=== PATIENT | female | born 1965 | race Caucasian/White ===

== ENCOUNTER 2016-08-25 06:52 | Observation (INO) | payer BC, OTHER ==
[~2016-08-25] VITALS: Ht 162.6 cm; Wt 88.0 kg
[2016-08-25] MEDS: NITROGLYCERIN 0.4 MG SL PER TAB CHARGE SL PRN ×2 (07:17→10:42)
--- NOTE | 2016-08-25 07:17 | EMERGENCY ROOM VISIT NOTE ---
History Report prepared by Lane: Ciara Corbin Under the Supervision of: Dr. Lorenzo Ennis M.D. First contact with patient: 07:03 Chief Complaint: CHEST PAIN Stated Complaint: CHEST PAIN,PAIN DOWN LFT ARM History of Present Illness The patient is a 51 year old female who presents to the Emergency Room with complaints of intermittent chest pain that began Thursday evening. She currently rates her discomfort as a 5/10 in severity. The patient states that Thursday she noticed the central chest pain and felt that it was indigestion. She states that her discomfort seemed to be alleviated with TUMS. The patient states that on Thursday she felt well, but notes that this morning she noticed the central chest pain again. She describes her discomfort as a pressure. The patient states that her left arm has been feeling strange as well. She notes a family history of heart disease. The patient denies any personal history of diabetes, heart disease, hypertension, lung disease, or kidney disease, but additionally notes that she does not regularly see her PCP. The patient denies any nausea, but notes a decrease in her appetite. Source of History: patient Onset: Thursday evening Position: chest (central) Symptom Intensity: 5/10 Quality: pressure Timing: intermittent Modifying Factors (Relieving): other (TUMS) Associated Symptoms: No nausea Review of Systems All systems have been listed, reviewed, and are negative other than those previously mentioned. Please see Additional Medical History Sheet. Past Medical & Surgical Surgical Problems: (1) Previous section Family History Cancer Gallbladder disease Heart disease Hypertension Social History Smoking Status: Never Smoker Smokeless Tobacco Use: No Alcohol Use: none Marital Status: Housing Status: lives with family Occupation Status: employed Current/Historical Medications No Active Prescriptions or Reported Meds Allergies Coded Allergies: No Known Allergies (Unverified , 05/18/14) Physical Exam Vital Signs Date Time Temp Pulse Resp B/P Pulse Ox O2 Delivery O2 Flow Rate FiO2 08/25/16 10:18 75 19 94 08/25/16 10:13 179/110 08/25/16 10:01 204/109 08/25/16 10:00 81 19 98 08/25/16 09:33 170/110 08/25/16 09:31 180/113 08/25/16 09:30 71 21 97 08/25/16 09:12 74 19 187/98 96 Room Air 08/25/16 09:11 187/98 08/25/16 07:24 80 08/25/16 07:22 81 194/105 08/25/16 07:19 96 Room Air 08/25/16 06:58 36.3 82 18 210/129 96 Room Air Physical Exam GENERAL: Patient awake, alert, oriented x 3. Patient follows commands. Patient appears to be in moderate distress. Patient does not appear toxic. Patient is adequately hydrated and well-nourished. SKIN: No erythema, pallor, cyanosis or rash HEENT: Normal head, pupils equal, reactive to light and accommodation. Neck: Without adenopathy, no neck vein distention. CHEST WALL: Tenderness to palpation over the left sternal border, approximately the 3rd intercostal space. LUNGS: Clear to auscultation. No wheezes, no rales, no rhonchi. HEART: No murmurs. No gallops. No rubs ABDOMEN: No masses, no rebound, no hepatomegaly or splenomegaly. EXTREMITIES: No signs of trauma. No pedal or pretibial edema. No calf or thigh tenderness. NEUROLOGIC: Cranial nerves II-XII within normal limits. No gross motor sensory function deficits. Medical Decision & Procedures ER Provider Diagnostic Interpretation: X ray results are stated below per my interpretation and the radiologist's interpretation. CHEST ONE VIEW PORTABLE CLINICAL HISTORY: Atypical chest pain COMPARISON STUDY: 05/18/2014 FINDINGS: The cardiac and mediastinal contours are normal. There is no evidence of focal pulmonary consolidation. There is no evidence of failure. No pleural effusions are visualized.[ IMPRESSION: No active disease in the chest. Electronically signed by: Gabriel Vargas M.D. 08/25/2016 7:24 AM Dictated Date/Time: 08/25/2016 7:21 AM Laboratory Results 08/25/16 07:10 08/25/16 07:10 Test 08/25/16 07:08 08/25/16 07:10 08/25/16 08:44 Prothrombin Time 10.3 SECONDS (9.0-12.0) Prothromb Time International Ratio 1.0 (0.9-1.1) Activated Partial Thromboplast Time 26.8 SECONDS (21.0-31.0) Partial Thromboplastin Ratio 1.0 Urine Color YELLOW Urine Appearance CLEAR (CLEAR) Urine pH 7.5 (4.5-7.5) Urine Specific [place] 1.011 (1.000-1.030) Urine Protein 1+ (NEG) Urine Glucose (UA) NEG (NEG) Urine Ketones NEG (NEG) Urine Occult Blood 1+ (NEG) Urine Nitrite NEG (NEG) Urine Bilirubin NEG (NEG) Urine Urobilinogen NEG (NEG) Urine Leukocyte Esterase NEG (NEG) Urine WBC (Auto) 1-5 /hpf (0-5) Urine RBC (Auto) 0-4 /hpf (0-4) Urine Hyaline Casts (Auto) 1-5 /lpf (0-5) Urine Epithelial Cells (Auto) 10-20 /lpf (0-5) Urine Bacteria (Auto) NEG (NEG) Urine Test NEG (NEG) Red Blood Count 5.20 M/uL (4.2-5.4) Mean Corpuscular Volume 90.8 fL (80-100) Mean Corpuscular Hemoglobin 31.3 pg (25-34) Mean Corpuscular Hemoglobin Concent 34.5 g/dl (32-36) RDW Standard Deviation 46.8 fL (36.4-46.3) RDW Coefficient of Variation 14.0 % (11.5-14.5) Mean Platelet Volume 10.2 fL (7.4-10.4) Anion Gap 5.0 mmol/L (3-11) Est Creatinine Clear Calc Drug Dose 87.1 ml/min Estimated GFR () 95.4 Estimated GFR (Non- 82.3 BUN/Creatinine Ratio 15.2 (10-20) Calcium Level 8.9 mg/dl (8.5-10.1) Total Bilirubin 0.9 mg/dl (0.2-1) Direct Bilirubin 0.2 mg/dl (0-0.2) Aspartate Amino Transf (AST/SGOT) 19 U/L (15-37) Alanine Aminotransferase (ALT/SGPT) 27 U/L (12-78) Alkaline Phosphatase 56 U/L (45-117) Total Protein 7.7 gm/dl (6.4-8.2) Albumin 4.2 gm/dl (3.4-5.0) Hepatitis C Antibody Screen NEG (NEG) Bedside Troponin I 0.020 ng/ml (0-0.045) Laboratory results as stated above per my review. Medications Administered Medications (Trade) Dose Ordered Sig/Dao Route Start Time Stop Time Status Last Admin Dose Admin Nitroglycerin (Nitrostat Tab) 0.4 mg PRN PRN SL 08/25/16 07:15 08/25/16 12:23 DC 08/25/16 10:42 0.4 MG Lisinopril (Zestril Tab) 10 mg NOW STAT PO 08/25/16 09:42 08/25/16 09:43 DC 08/25/16 10:17 10 MG ECG Indication: chest pain Rate (beats per minute): 93 Rhythm: normal sinus Findings: no acute ischemic change, no ectopy ED Course 704: Past medical records reviewed. The patient was evaluated in room B6. A complete history and physical examination was performed. 714: Ordered Nitroglycerin 0.4 mg SL. 926: I reevaluated the patient and she is resting comfortably. I discussed the exam findings with her and I discussed the treatment plan. She verbalized complete understanding and agreement. She will be evaluated for further treatment. 941: I discussed the patients case with MIGUEL A Paz. He is going to evaluate the patient for further treatment. Ordered Lisinopril 10 mg PO. Medical Decision I considered multiple diagnoses including myocardial infarction, chest wall pain , pericarditis, myocarditis, aortic emergencies, pulmonary embolism, congestive heart failure, GI causes, and other significant cardiopulmonary disorders. The patient does have some tenderness on palpation over the left sternal border. The patient felt almost immediate relief with nitroglycerin. Following that her pain remained low but she still says that she does not feel right. Patient also had some numbness on her left arm. Her blood pressure remains elevated. Multiple labs, EKG and imaging were obtained. Please see above. She has 2 negative troponins. In light of all the above I believe the patient requires further evaluation in the hospital. I remain concerned about the possible cardiac etiology and hypertension. I discussed care with the patient, her and the hospitalist. Consults Time Called: [phone] Consulting Physician: MIGUEL A Paz Returned Call: [phone] I discussed the patients case with MIGUEL A Paz. He is going to evaluate the patient for further treatment. Impression Primary Impression: Substernal precordial chest pain Additional Impression: Hypertension Scribe Attestation The scribe's documentation has been prepared under my direction and personally reviewed by me in its entirety. I confirm that the note above accurately reflects all work, treatment, procedures, and medical decision making performed by me. Departure Information Dispostion Being Evaluated By Hospitalist Prescriptions No Active Prescriptions or Reported Meds Referrals No Doctor, Assigned (PCP) Problem Qualifiers
[2016-08-25 07:23] LABS: HEMATOCRIT 47.2 % (37-47); MEAN CELL VOLUME 90.8 fL (80-100); MEAN CORPUSCULAR HEMOGLOBIN 31.3 pg (25-34); MEAN CORPUSCULAR HGB CONC 34.5 g/dl (32-36); MEAN PLATELET VOLUME 10.2 fL (7.4-10.4); PLATELET COUNT 183 K/uL (130-400); WHITE BLOOD COUNT 7.25 K/uL (4.8-10.8)
--- NOTE | 2016-08-25 07:27 | DIAGNOSTIC IMAGING REPORT ---
CHEST ONE VIEW PORTABLE CLINICAL HISTORY: Atypical chest pain COMPARISON STUDY: 05/18/2014 FINDINGS: The cardiac and mediastinal contours are normal. There is no evidence of focal pulmonary consolidation. There is no evidence of failure. No pleural effusions are visualized.[ IMPRESSION: No active disease in the chest. Electronically signed by: Gabriel Vargas M.D. 08/25/2016 7:24 AM Dictated Date/Time: 08/25/2016 7:21 AM
[2016-08-25 07:40] LABS: BUN/CREATININE RATIO 15.2 (10-20); CALCIUM 8.9 mg/dl (8.5-10.1); CREATININE 0.82 mg/dl (0.60-1.20); POTASSIUM 3.9 mmol/L (3.5-5.1)
[2016-08-25] MEDS ORDERED: MoRPHine SULFATE 4 MG/ML 1 ML CARP\\VIAL ONE (07:47)
[2016-08-25 08:10] LABS: URINE APPEARANCE CLEAR (CLEAR); URINE BILIRUBIN NEG (NEG); URINE COLOR YELLOW; URINE NITRITE NEG (NEG); URINE PH 7.5 (4.5-7.5); URINE SPECIFIC GRAVITY 1.011 (1.000-1.030); UROBILINOGEN NEG (NEG); ZZUR CULT IF INDIC CLEAN CATCH NO
[2016-08-25 08:32] LABS: MANUAL MICROSCOPIC REQUIRED? NO; REVIEW REQ? NO
[2016-08-25 08:33] LABS: SULFASALICYLIC ACID POS (NEG)
[2016-08-25] MEDS ORDERED: LISINOPRIL 20 MG TAB PO STA (09:42)
[2016-08-25] MEDS ORDERED: SODIUM CHLORIDE 0.9% 1000ML 1,000 ML IV SCH (10:19)
[2016-08-25] MEDS ORDERED: PANTOprazole SOD 40 MG TAB PO STA (10:19)
[2016-08-25 10:26] VITALS: O2SAT 98; Ht 162.6 cm; Wt 88.0 kg
[2016-08-25] MEDS ORDERED: NITROGLYCERIN 0.4 MG SL PER TAB CHARGE SL STA (10:26)
--- NOTE | 2016-08-25 10:28 | History and Physical ---
History & Physical Date & Time of Service: Aug 25, 2016 at 09:51 Chief Complaint: Chest Pain,Pain Down Lft Arm Primary Care Physician: No Doctor, Assigned History of Present Illness Source: patient, spouse 51yo female with history of possible HTN who presents with chest symptoms. Thursday AM - had a "pressure" sensation over the substernal area. Took tums for presumed reflux. Had only mild relief of symptoms. The pressure sensation "felt weird." Didn't have associated nausea, emesis, diaphoresis, or radiation of the pressure sensation. She and her family traveled to [place], [place] later that day. While in a fast food restaurant on the road she felt like she might pass out and had the pressure sensation again. She drank soda and the pressure sensation actually improved. The pressure sensation, in total, lasted most of the day. By late evening the pressure sensation was still there but nearly gone. The symptoms were NOT worsened with activity. Never had dyspnea. Thursday - had no chest symptoms, no feelings of lightheadedness, etc. Was able to carry out her normal ADLs. Thursday AM at 3am she woke up feeling poorly. She had menstrual cramps and substernal chest pain once again. This time the pain was also in the left arm. Today the pain has felt like a "burning" sensation more so than pressure. At 7am this morning she also felt she was going to pass out. This was in the setting of the chest symptoms. NO dyspnea today. NO neck/jaw pain. NO nausea or vomiting. NO diaphoresis at this time although she felt sweaty at 3am. NO burping today but had such on Thursday. Appetite has been poor this am. In the ER this am her chest symptoms improved with use of SL nitroglycerin. Past Medical/Surgical History PMH: 1. 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[employer])) Multi-Drug Resistant Organisms History of MDRO: No Allergies Coded Allergies: No Known Allergies (Unverified , 05/18/14) Home Medications No Active Prescriptions or Reported Meds Review of Systems Constitutional: No chills, No fatigue, No fever, No weight loss Eyes: No worsening of vision ENT: No nasal symptoms, No sore throat Respiratory: No cough, No dyspnea at rest, No dyspnea on exertion, No shortness of breath, No sputum, No wheezing Cardiovascular: + chest pain, No PND, No edema, No orthopnea Abdomen: No GI bleeding, No constipation, No diarrhea, No nausea, No pain, No vomiting Musculoskeletal: No joint pain Genitourinary - Female: No dysuria Neurologic: + numbness/tingling (left hand - this AM when she had the left arm pain - now resolved) Psychiatric: No anxiety, No depression symptoms Endocrine: No excessive thirst, No excessive urination Hematologic / Lymphatic: No abnormal bleeding/bruising Integumentary: No rash Allergic / Immunologic: No environmental allergies Physical Exam Vital Signs Date Time Temp Pulse Resp B/P Pulse Ox O2 Delivery O2 Flow Rate FiO2 08/25/16 09:12 74 19 187/98 96 Room Air 08/25/16 07:24 80 08/25/16 07:22 81 194/105 08/25/16 07:19 96 Room Air 08/25/16 06:58 36.3 82 18 210/129 96 Room Air General Appearance: WD/WN, no apparent distress, + obese Head: normocephalic, atraumatic Eyes: normal inspection, PERRL ENT: hearing grossly normal, TMs normal, pharynx normal Neck: supple, no adenopathy, thyroid normal, no JVD Respiratory/Chest: lungs clear, normal breath sounds, no respiratory distress, no accessory muscle use, + pertinent finding (chest modestly tender to palpation over left sternal border but the pain I reproduced was NOT the same pain as her "pressure") Cardiovascular: regular rate, rhythm, no edema, no gallop, no JVD, no murmur, normal peripheral pulses Abdomen/GI: normal bowel sounds, non tender, soft, no organomegaly, no pulsatile mass Back: normal inspection Extremities/Musculoskelatal: normal inspection, no pedal edema Neurologic/Psych: no motor/sensory deficits, alert, normal reflexes, oriented x 3 Skin: no rash Lymphatic: no adenopathy (cervical) Diagnostics Laboratory Results Results Past 24 Hours Test 08/25/16 07:08 08/25/16 07:10 08/25/16 07:16 08/25/16 08:44 Range/Units Urine Color YELLOW Urine Appearance CLEAR CLEAR Urine pH 7.5 4.5-7.5 Urine Specific [place] 1.011 1.000-1.030 Urine Protein 1+ NEG Urine Glucose (UA) NEG NEG Urine Ketones NEG NEG Urine Occult Blood 1+ NEG Urine Nitrite NEG NEG Urine Bilirubin NEG NEG Urine Urobilinogen NEG NEG Urine Leukocyte Esterase NEG NEG Urine WBC (Auto) 1-5 0-5 /hpf Urine RBC (Auto) 0-4 0-4 /hpf Urine Hyaline Casts (Auto) 1-5 0-5 /lpf Urine Epithelial Cells (Auto) 10-20 0-5 /lpf Urine Bacteria (Auto) NEG NEG Urine Test NEG NEG White Blood Count 7.25 4.8-10.8 K/uL Red Blood Count 5.20 4.2-5.4 M/uL Hemoglobin 16.3 12.0-16.0 g/dL Hematocrit 47.2 37-47 % Mean Corpuscular Volume 90.8 80-100 fL Mean Corpuscular Hemoglobin 31.3 25-34 pg Mean Corpuscular Hemoglobin Concent 34.5 32-36 g/dl RDW Standard Deviation 46.8 36.4-46.3 fL RDW Coefficient of Variation 14.0 11.5-14.5 % Platelet Count 183 130-400 K/uL Mean Platelet Volume 10.2 7.4-10.4 fL Sodium Level 140 136-145 mmol/L Potassium Level 3.9 3.5-5.1 mmol/L Chloride Level 107 98-107 mmol/L Carbon Dioxide Level 28 21-32 mmol/L Anion Gap 5.0 3-11 mmol/L Blood Urea Nitrogen 12 7-18 mg/dl Creatinine 0.82 0.60-1.20 mg/dl Est Creatinine Clear Calc Drug Dose 87.1 ml/min Estimated GFR () 95.4 Estimated GFR (Non- 82.3 BUN/Creatinine Ratio 15.2 10-20 Random Glucose 109 70-99 mg/dl Calcium Level 8.9 8.5-10.1 mg/dl Bedside Troponin I 0.020 0.020 0-0.045 ng/ml CXR normal EKG EKG - my reading - NSR, no ST changes Impression Assessment and Plan 51yo female with history of possible HTN presenting with intermittent chest pressure since Thursday along with markedly elevated BP/accelerated HTN. 1. chest pain - responded to SL nitroglycerin in the ER, but thus far her cardiac w/u is negative. Plan: serial cardiac enzymes. Asa 81mg daily. Nitropaste 0.5 inch q6h. Treat the BP. If trops are negative then exercise stress echo in AM. If cardiac work-up is negative this may be severe GERD or related to her markedly elevated BP. EKG in am. Check TSH, hemoglobin a1c, and lipid panel in AM. 2. accelerated HTN - Received lisinopril 10mg x 1 from the ER physician. Will place on nitropaste q6h. She may need other medications as well. Patient thinks her BPs "may have been high" at past MD appointments. Will check the outpatient record. 3. polycythemia - mild. Hemoconcentration? Will hydrate and recheck CBC in am. 4. DVT proph - lovenox 40mg daily. 5. ?GERD - place on PPI. 6. FEN - hydrate with NS overnight. NPO after midnight tonight for stress echo in am. 7. near-syncope - may be related to high blood pressure. Treat the BP and follow for recurrent symptoms. place on observation status Note total time about 60 minutes
[2016-08-25] MEDS ORDERED: MoRPHine SULFATE 2 MG/ML CARP IV PRN (10:30)
[2016-08-25] MEDS ORDERED: ALUMINUM/MAGNESIUM/SIMETH (MAALOX MAX) 30 ML UDC PO PRN (10:30)
[2016-08-25] MEDS ORDERED: ZOLPIDEM TARTRATE 5 MG TAB PO PRN (10:30)
[2016-08-25] MEDS ORDERED: NITROGLYCERIN 0.4 MG SL PER TAB CHARGE SL PRN (10:30)
[2016-08-25] MEDS ORDERED: MAGNESIUM HYDROXIDE SUSP 30 ML UDC PO PRN (10:30)
[2016-08-25] MEDS ORDERED: ACETAMINOPHEN 325 MG TAB PO PRN (10:30)
[2016-08-25] MEDS ORDERED: IV FLUIDS COMPLETED PRN (11:00)
[2016-08-25 12:16] VITALS: BP 198/131; PULSE 79; TEMP 36.8; O2SAT 98
[2016-08-25 12:46] LABS: PROTHROMBIN TIME (PATIENT) 10.3 SECONDS (9.0-12.0)
[2016-08-25 13:15] VITALS: BP 179/118
[2016-08-25] MEDS: ASPIRIN 81 MG ECTAB PO SCH (13:31)
[2016-08-25] MEDS ORDERED: NITROGLYCERIN OINT 2% 1GM PACKET ONE (13:33)
[2016-08-25] MEDS ORDERED: ENOXAPARIN 40 MG/0.4 ML SYR SC SCH (14:00)
[2016-08-25 15:14] VITALS: BP 173/119; PULSE 81; TEMP 36.6; O2SAT 95
[2016-08-25 15:34] LABS: CKMB/CK RATIO 2.1 (0-3.0)
[2016-08-25 16:00] VITALS: O2SAT 98
[2016-08-25] MEDS ORDERED: NITROGLYCERIN OINT 2% 1GM PACKET EXT SCH (16:00)
[2016-08-25] MEDS ORDERED: NIFEdipine 30 MG CR TAB PO STA (17:45)
[2016-08-25 19:22] VITALS: BP 175/110; PULSE 77; TEMP 36.4; O2SAT 96
[2016-08-25] MEDS: ONDANSETRON INJ 2 MG/ML 2 ML VIAL IV PRN (19:24)
[2016-08-25] MEDS ORDERED: KETOROLAC TROMETHAMINE 30 MG/ML VIAL IV STA (19:50)
[2016-08-25] MEDS: BUTALBITAL/ACETAMIN/CAFFEINE TAB PO PRN (20:38)
--- NOTE | 2016-08-25 21:13 | Progress Note ---
Progress Note Date of Service Aug 25, 2016. Progress Note 2100 I reviewed her vitals from the outpatient record. There were a limited number of BPs listed from 2013 to the present but ALL have been elevated. Systolics ranged from 140s to 160s. Diastolics were 90s to 110s. I rechecked the patient this evening. Discussed with her that she has essential HTN given her readings over the last few years. She c/o headache. Has h/o headaches in the past. Some of them associated w/ nausea, phonophobia, etc. Sounds like migraines. Stop nitropaste. Nifedipine 30mg x 1 for BP. For headache - toradol IV x 1. If no relief with these measures then try fioricet. I explained, given that her BP was 220 systolic at presentation, we do NOT want to lower the BP much more than 160s or so tonight. Migel Spears MD
[2016-08-25 22:00] LABS: CKMB/CK RATIO 1.8 (0-3.0)
[2016-08-26 00:04] VITALS: BP 146/88; PULSE 74; TEMP 36.6; O2SAT 96
[2016-08-26 03:51] VITALS: BP 149/96; PULSE 80; TEMP 36.6; O2SAT 96
[2016-08-26 07:07] LABS: BASO % 0.2 %; BASO ABS # 0.02 K/uL (0-0.2); COMPLETE YES; EOS % 1.9 %; IG% 0.4 %; LYMPH ABS # 1.54 K/uL (1.2-3.4); MEAN CELL VOLUME 90.5 fL (80-100); MEAN CORPUSCULAR HGB CONC 34.2 g/dl (32-36); MEAN PLATELET VOLUME 10.4 fL (7.4-10.4); NEUT % 69.5 %; PLATELET COUNT 173 K/uL (130-400); RED BLOOD COUNT 4.97 M/uL (4.2-5.4); WHITE BLOOD COUNT 8.09 K/uL (4.8-10.8)
[2016-08-26 07:39] VITALS: BP 148/72; PULSE 83; TEMP 36.9; O2SAT 95
[2016-08-26 07:49] LABS: CHOLESTEROL/HDL RATIO 4.9; THYROID STIMULATING HORMONE 1.65 uIu/ml (0.300-4.500)
[2016-08-26] MEDS: BUTALBITAL/ACETAMIN/CAFFEINE TAB PO PRN (07:55)
[2016-08-26] MEDS: ASPIRIN 81 MG ECTAB PO SCH (07:56)
[2016-08-26] MEDS ORDERED: PANTOprazole SOD 40 MG TAB PO SCH (09:00)
[2016-08-26] MEDS ORDERED: NIFEdipine 30 MG CR TAB PO SCH (09:00)
[2016-08-26 09:51] LABS: ESTIMATED AVERAGE GLUCOSE 103 mg/dl; HA1C FLAG Normal (Normal)
[2016-08-26] MEDS ORDERED: NURSING VERBAL MED ORDER ONE (10:15)
[2016-08-26] MEDS ORDERED: HydrALAZINE HCL 20 MG/ML VIAL ONE (10:20)
[2016-08-26] MEDS ORDERED: PERFLUTREN LIPID MICROSPHERE (DEFINITY) IV ONE (11:29)
[2016-08-26] MEDS: ONDANSETRON INJ 2 MG/ML 2 ML VIAL IV PRN (11:30)
--- NOTE | 2016-08-26 12:46 | EXERCISE STRESS ECHO ---
*NOTICE TO RECEIVING [employer] This information is strictly Confidential and protected under [place] law. [place] law prohibits you from making any further disclosure of this information unless further disclosure is expressly permitted by the written consent of the person to whom it pertains or is authorized by law. A general authorization for the release of medical or other information is not sufficient for this purpose. Hospital accepts no responsibility if the information is made available to any other person, INCLUDING THE PATIENT. Interpretation Summary * Name: CHRISTINA RODRIGUEZ Study Date: 08/26/2016 10:12 AM BP: 160/90 mmHg * Patient Location: C.2T\S\E219\S\1 HR: 91 * : 1965 (M/d/yyyy) Gender: Female Height: 64 in * Age: 51 yrs Ethnicity: [place] Weight: 197 lb * Ordering Physician: Migel Spears * Referring Physician: Self, Referred * Performed By: Ciara Irving RDCS * * Reason For Study: CHEST PAIN * BSA: 1.9 m2 * History: CHEST PAIN * -- Conclusions -- * Left ventricular systolic function is low normal. * Diastolic dysfunction, Grade II (pseudonormalization pattern). * Non-diagnostic exsercise echocardiogra due to very poor exercise tolerance and inability to reach target heart rate * No evidence of inducible ischemia at the workload acheived. Procedure Details * ECHOEX, CPT #38439 * A contrast injection of Definity was performed to improve assessment of LV function. * Contrast was injected into an intravenous site in the right arm. * One vial of Definity ultrasound contrast was diluted in normal saline to a total volume of 10 ml. A total of '4' ml of solution was administered during imaging. * Lot # [id number] of Definity utilized for procedure. * Expiration date JUN 21. * The attending nurse who injected the contrast agent was SHANNON MACE RN. Left Ventricular Findings with Stress * Non-diagnostic exsercise echocardiogra due to very poor exercise tolerance and inability to reach target heart rate No evidence of inducible ischemia at the workload acheived. Left Ventricle * The left ventricle is normal in size. * There is normal left ventricular wall thickness. * Ejection Fraction = 55-60%. * Left ventricular systolic function is low normal. * Diastolic dysfunction, Grade II (pseudonormalization pattern). * The left ventricular wall motion is normal. Right Ventricle * The right ventricle is normal in size and function. Atria * The left atrium is small. * Right atrial size is normal. Mitral Valve * The mitral valve is grossly normal. * Significant mitral regurgitation is absent. Tricuspid Valve * The tricuspid valve is not well visualized, but is grossly normal. Aortic Valve * The aortic valve is normal in structure and function. * No hemodynamically significant valvular aortic stenosis. * There is no significant aortic regurgitation. Pericardium * There is no pericardial effusion. Stress Parameters * Normal baseline electrocardiogram. * Maximum 1mm upsloping depression in early recovery * Rest heart rate was '91' BPM. * Rest blood pressure was '160/90' * Maximum heart rate achieved was 131 bpm. * Maximum heart rate was 77 % of maximum age-predicted heart rate. * Maximum blood pressure was '164/78' * Total exercise time was '5:10' * Maximum exercise MET level achieved was '7' METS * Maximum treadmill speed was '2.5' miles per hour. * Maximum treadmill elevation was '12'% grade. * Exercise was terminated due to 'FATIGUE' Left Ventricular Findings with Stress * Poor exrecise tolerance No chest pain reported EKG suggestive of ischemia at workload achieved. No inducible wall motion abnormalities with exertion Wilkins treadmill score: 0 (moderate risk) MMode 2D Measurements and Calculations IVSd 0.98 cm IVSs 1.4 cm LVIDd 4.8 cm LVIDs 3.3 cm LVPWd 0.77 cm LVPWs 1.1 cm IVS/LVPW 1.3 FS 30.0 % EDV(Teich) 106.0 ml ESV(Teich) 45.4 ml EF(Teich) 57.2 % EDV(cubed) 108.6 ml ESV(cubed) 37.2 ml EF(cubed) 65.8 % % IVS thick 40.4 % % LVPW thick 46.3 % LV mass(C)d 141.2 grams LV mass(C)dI 72.6 grams/m\S\2 LV mass(C)s 135.6 grams LV mass(C)sI 69.8 grams/m\S\2 SV(Teich) 60.7 ml SI(Teich) 31.2 ml/m\S\2 SV(cubed) 71.4 ml SI(cubed) 36.8 ml/m\S\2 LA dimension 3.6 cm LVAd ap4 32.3 cm\S\2 LVLd ap4 8.6 cm EDV(MOD-sp4) 100.2 ml EDV(sp4-el) 102.6 ml LVAs ap4 18.0 cm\S\2 LVLs ap4 7.2 cm ESV(MOD-sp4) 38.3 ml ESV(sp4-el) 38.1 ml EF(MOD-sp4) 61.8 % EF(sp4-el) 62.9 % SV(MOD-sp4) 62.0 ml SI(MOD-sp4) 31.9 ml/m\S\2 SV(sp4-el) 64.5 ml SI(sp4-el) 33.2 ml/m\S\2 Doppler Measurements and Calculations MV E max justin 94.1 cm/sec MV A max justin 68.4 cm/sec MV E/A 1.4 MV dec time 0.17 sec Ao V2 max 153.4 cm/sec Ao max PG 9.4 mmHg Ao max PG (full) 3.5 mmHg LV V1 max PG 5.9 mmHg LV V1 max 121.8 cm/sec
[2016-08-26 13:08] VITALS: BP 149/74
[2016-08-26 15:41] VITALS: BP 145/83; PULSE 92; TEMP 36.7; O2SAT 96
[2016-08-26] MEDS ORDERED: NIFE1TAB13 PO (16:17)
--- NOTE | 2016-08-26 16:19 | Discharge Instructions ---
Discharge Instructions Date of Service Aug 26, 2016. Admission Reason for Admission: Substernal Precordial Chest Pain Discharge Discharge Diagnosis / Problem: chest pain Discharge Goals Goal(s): Improve function Activity Recommendations Activity Limitations: resume your previous activity Lifting Limitations: none Exercise/Sports Limitations: gradually increase as tolerated May Resume Sexual Activity: when tolerated Shower/Bathe: no limitations Driving or Machine Use: no limitations . Instructions / Follow-Up Instructions / Follow-Up PCP in one to two weeks Current Hospital Diet Patient's current hospital diet: AHA Diet (Heart Healthy) Discharge Diet Recommended Diet: AHA Diet (Heart Healthy) Procedures Procedures Performed: Stress echo Pending Studies Studies pending at discharge: no Laboratory Results Hemoglobin A1c Test 08/26/16 06:30 Range/Units Estimated Average Glucose 103 mg/dl Hemoglobin A1c 5.2 4.5-5.6 % Lipid Panel Test 08/26/16 06:30 Range/Units Triglycerides Level 194 H 0-150 mg/dl Cholesterol Level 136 0-200 mg/dl HDL Cholesterol 28 mg/dl Cholesterol/HDL Ratio 4.9 LDL Cholesterol, Calculated 69 mg/dl Medical Emergencies . Who to Call and When: Medical Emergencies: If at any time you feel your situation is an emergency, please call 911 immediately. . Non-Emergent Contact Non-Emergency issues call your: Primary Care Provider . Past History Medical & Surgical History: (1) Hypertension . "Provider Documentation" section prepared by Patrick Monge. . VTE Core Measure Inpt VTE Proph given/why not?: SCD's
[2016-08-26 16:21] VITALS: BP 145/83; PULSE 92; TEMP 36.7; O2SAT 96
--- NOTE | 2016-08-26 16:26 | Discharge Summary ---
Discharge Summary Date of Service Aug 26, 2016. Discharge Summary Admission Date: Aug 25, 2016 at 10:25 Discharge Date: Aug 26, 2016 Discharge Disposition: Home Principal Diagnosis: Chest pain Problems/Secondary Diagnoses: Essential hypertension Procedures: Interpretation Summary * Name: CHRISTINA RODRIGUEZ Study Date: 08/26/2016 10:12 AM BP: 160/90 mmHg * Patient Location: [facility]\S\[address]219\S\1 HR: 91 * : 1965 (M/d/yyyy) Gender: Female Height: 64 in * Age: 51 yrs Ethnicity: CA Weight: 197 lb * Ordering Physician: Migel Spears * Referring Physician: Self, Referred * Performed By: Ciara Irving RDCS * * Reason For Study: CHEST PAIN * BSA: 1.9 m2 * History: CHEST PAIN * -- Conclusions -- * Left ventricular systolic function is low normal. * Diastolic dysfunction, Grade II (pseudonormalization pattern). * Non-diagnostic exsercise echocardiogra due to very poor exercise tolerance and inability to reach target heart rate * No evidence of inducible ischemia at the workload acheived. Procedure Details * ECHOEX, CPT #85903 * A contrast injection of Definity was performed to improve assessment of LV function. * Contrast was injected into an intravenous site in the right arm. * One vial of Definity ultrasound contrast was diluted in normal saline to a total volume of 10 ml. A total of '4' ml of solution was administered during imaging. * Lot # [id number] of Definity utilized for procedure. * Expiration date 1 JUN 21. * The attending nurse who injected the contrast agent was SHANNON MACE RN. Left Ventricular Findings with Stress * Non-diagnostic exsercise echocardiogra due to very poor exercise tolerance and inability to reach target heart rate No evidence of inducible ischemia at the workload acheived. Left Ventricle * The left ventricle is normal in size. * There is normal left ventricular wall thickness. * Ejection Fraction = 55-60%. * Left ventricular systolic function is low normal. * Diastolic dysfunction, Grade II (pseudonormalization pattern). * The left ventricular wall motion is normal. Right Ventricle * The right ventricle is normal in size and function. Atria * The left atrium is small. * Right atrial size is normal. Mitral Valve * The mitral valve is grossly normal. * Significant mitral regurgitation is absent. Tricuspid Valve * The tricuspid valve is not well visualized, but is grossly normal. Aortic Valve * The aortic valve is normal in structure and function. * No hemodynamically significant valvular aortic stenosis. * There is no significant aortic regurgitation. Pericardium * There is no pericardial effusion. Stress Parameters * Normal baseline electrocardiogram. * Maximum 1mm upsloping depression in early recovery * Rest heart rate was '91' BPM. * Rest blood pressure was '160/90' * Maximum heart rate achieved was 131 bpm. * Maximum heart rate was 77 % of maximum age-predicted heart rate. * Maximum blood pressure was '164/78' * Total exercise time was '5:10' * Maximum exercise MET level achieved was '7' METS * Maximum treadmill speed was '2.5' miles per hour. * Maximum treadmill elevation was '12'% grade. * Exercise was terminated due to 'FATIGUE' Left Ventricular Findings with Stress * Poor exrecise tolerance No chest pain reported EKG suggestive of ischemia at workload achieved. 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 1. chest pain - responded to SL nitroglycerin in the ER, but thus far her cardiac w/u is negative. Plan: serial cardiac enzyme were negative. Pt underwent stress echo which was negative at the level of heart rate achieved (77 percent). Counselled reg. diet and exercise. 2. accelerated HTN - Received lisinopril 10mg x 1 from the ER physician. Bp improved with Procardia XL 30mg daily which the pt will continue at discharge. Follow up with PCP in one to two weeks. 3. Hypertriglyceridemia, mild Diet and exercise. . Total Time Spent: Less than 30 minutes This includes examination of the patient, discharge planning, medication reconciliation, and communication with other providers. Discharge Instructions Please refer to the electronic Patient Visit Report (Discharge Instructions) for additional information. Follow-Up PCP in one to two weeks.
== END 2016-08-26 16:40 | disposition home or self-care (01) ==
LOC: ENRESERVDT → ENRESERVTM → C.EDB 06:54 → C.2T 10:25
PROVIDERS: ADMIT Internal Medicine; ATTEND Internal Medicine
DX: R07.9 Chest pain, unspecified (principal); I10 Essential (primary) hypertension; Z80.9 Family history of malignant neoplasm, unspecified; Z82.49 Family history of ischemic heart disease and other diseases of the circulatory system

== ENCOUNTER → 2016-12-02 | Outpatient (CLI) | payer BC ==
[~2016-12-02] MED LIST: NIFE1TAB13 PO
[2016-12-02 12:33] LABS: ALT/SGPT 31 U/L (12-78); AST/SGOT 20 U/L (15-37); BLOOD UREA NITROGEN 12 mg/dl (7-18); BUN/CREATININE RATIO 14.8 (10-20); CALCIUM 9.4 mg/dl (8.5-10.1); CARBON DIOXIDE 26 mmol/L (21-32); CHLORIDE 105 mmol/L (98-107); CREATININE 0.79 mg/dl (0.60-1.20); GLUCOSE 92 mg/dl (70-99); POTASSIUM 3.8 mmol/L (3.5-5.1); SODIUM 138 mmol/L (136-145)
[2016-12-02 12:36] LABS: ALB/GLOB RATIO 1.2 (0.9-2); ALKALINE PHOSPHATASE 54 U/L (45-117)
== END | disposition home or self-care (01) ==
LOC: C.LAB1850 09:52
PROVIDERS: ATTEND Internal Medicine
DX: I10 Essential (primary) hypertension (principal); M25.471 Effusion, right ankle; M25.472 Effusion, left ankle